=== PATIENT | female | born 1985 | race Caucasian/White ===

== ENCOUNTER 2021-09-18 12:54 | Outpatient (CLI) | payer OTHER, SELFPAY ==
[2021-09-18 13:17] LABS: Basophils Absolute Auto 0.1 K/mm3 (0.0-0.1); Basophils Percent Auto 0.5 % (0.2-1.2); Eosinophils Absolute Auto 0.2 K/mm3 (0-0.3); Hematocrit 36.3 % (37.0-47.0); Hemoglobin 10.8 g/dL (12.0-15.0); Immature Granulocyte Absolute 0.05 K/mm3 (0.00-0.031); Immature Granulocyte Percent A 0.5 % (0-0.5); Lymphocytes Absolute Auto 2.57 K/mm3 (0.9-3.2); Mean Corpuscular HGB Conc 29.8 g/dl (32-36); Mean Corpuscular Volume 74.1 fl (80-100); Mean Platelet Volume 9.9 fl (7.4-10.4); Monocytes Absolute Auto 0.8 K/mm3 (0.1-0.6); Monocytes Percent Auto 7.5 % (2.6-8.5); Neutrophils Percent Auto 65.5 % (45.5-73.1); Platelet Count Result 318 k/mm3 (150-375); Red Cell Distribution Width 17.5 % (11.5-14.5); White Blood Count 10.7 K/mm3 (4.5-10.0)
[2021-09-18 13:31] LABS: Cholesterol 189 mg/dL (0-200); HDL Direct 42 mg/dL; Triglycerides 222 mg/dL (<150)
[2021-09-18 13:41] LABS: LDL Cholesterol Direct 115 mg/dL
[2021-09-18 13:45] LABS: Beta HCG Quantitative < 2.39 mIU/ML
[2021-09-18 14:16] LABS: Hemoglobin A1C 6.1 % (<5.7)
[2021-09-18 14:48] LABS: Hypochromasia 1+ (NORMAL); Ovalocytes 1+ (NORMAL); Platelet Estimate Adequate (Adequate); Stomatocytes 1+ (NORMAL)
[2021-09-21 15:25] LABS: FSH 5.2 mIU/mL (***); Progesterone 0.7 ng/mL (***); Prolactin 10.3 ng/mL (***)
[2021-09-24 18:05] LABS: Testosterone Free 6.5 pg/mL (0.1-6.4); Testosterone Total 33 ng/dL (2-45)
[2021-09-24 22:56] LABS: Estradiol, Ultrasensitive 45 pg/mL
== END 2021-09-18 12:55 | disposition home or self-care (01) ==
LOC: ANHLAB 12:58
PROVIDERS: PCP Family Medicine; Visit Provider Obstetrics & Gynecology
DX: Z87.42 Personal history of other diseases of the female genital tract (principal)
CPT/HCPCS: 36415; 80061; 82670; 83001; 83036; 84144; 84146; 84402; 84403; 84702; 85025

== ENCOUNTER 2021-09-29 15:21 | Outpatient (CLI) | payer OTHER, SELFPAY ==
--- NOTE | ~2021-09-29 | US_ITS ---
EXAMINATION: US pelvic complete w TV DATE: 09/29/2021 16:03 INDICATION: Endometriosis, PCOS, irregular periods, infertility. TECHNIQUE: Multiple transabdominal and endovaginal sonographic images of the pelvis were obtained. COMPARISON: None. FINDINGS: Uterus: 9.2 x 4.9 x 4.0 cm. Endometrial complex measures 1.2 cm. Right Ovary: 2.9 x 2.4 x 2.8 cm. Vascular flow is present. Small peripheral cysts or follicles. Left Ovary: 2.8 x 2.5 x 2.4 cm. Vascular flow is present. Likely multiple small follicles. There is no free fluid in the pelvis. IMPRESSION: 1. Ovarian morphology could be consistent with polycystic ovarian syndrome in the appropriate clinica l context. 2. Otherwise normal pelvic sonogram findings. Reviewed, dictated and finalized at location K. IMPRESSION: 1. Ovarian morphology could be consistent with polycystic ovarian syndrome in t he appropriate clinical context. 2. Otherwise normal pelvic sonogram findings.
== END 2021-09-29 15:22 | disposition home or self-care (01) ==
PROVIDERS: PCP Family Medicine; Visit Provider Obstetrics & Gynecology
DX: Z87.42 Personal history of other diseases of the female genital tract (principal); N83.201 Unspecified ovarian cyst, right side
CPT/HCPCS: 76830; 76856

== ENCOUNTER 2021-11-02 00:26 | Day surgery (SDC) | payer OTHER, SELFPAY ==
[2021-10-27 12:21] VITALS: BMI 48.6
--- NOTE | 2021-10-27 12:30 | PC.NURSE ---
Report to the Outpatient Waiting Room, entrance under the green pavilion located off [facility], at time 0900_ on date _11/02/21___. OR Time: ___1100_. - You and your visitor will be asked a series of questions to screen for COVID 19 for your protection. - Only one visitor is allowed at this time. - The patient visitor is requested to leave or wait in car when not with patient. - A mask is required within the hospital. Patients may have clear liquids (water, carbonated beverages, clear teas, apple juice) until 3 hours prior to surgery with a maximum of 20 ounces. - No food from midnight until time of surgery - Infants may have breast milk until 4 hours before surgery, formula 6 hours prior to surgery. - Children will be allowed to drink immediately following surgery. If applicable, please bring a bottle or sippy cup to assist with drinking. Juice, water, soda, and popsicles are readily available. For infants on formula, please bring formula the day of surgery. Pacifiers are allowed. Take the following medications with a SIP of water the morning of surgery: NONE Medications to discontinue per physician NONE Date to take last dose Please no make-up, nail sami, hairspray, perfume, deodorant, or body powder the day of surgery. No jewelry (including any body piercings) or valuables the day of surgery, leave them at home. Please take a shower or bath the night before, or the morning of, surgery with an antibacterial soap. Wear comfortable, loose fitting clothing. Children are encouraged to wear pajamas. - Jewelry must be removed prior to entering the operating room. Rings and piercings that are not removed may be cut off. - The hospital will not accept responsibility for valuables. - Please leave all valuables, including medications, at home the day of surgery. If you are going home after surgery, a licensed refrigerated company driver must drive you home. - NO public transportation without another adult. - We recommend that an adult stay with you for 24 hours following discharge. - We also recommend that you do not drive, make important decision, drink alcoholic beverages, or take any drugs that were not prescribed by your health care provider for at least 24 hours after your discharge time. For Pediatric surgeries, we recommend two adults accompany the child home (only one inside the building at this time). Follow any additional instructions given to you from your surgeon. If you or anyone in your household have experienced Covid symptoms in the past week, please notify your surgeon or the nurse liaison at the phone number below for possible testing. Telephone instructions given to _PATIENT and asked if any additional questions and then verbalized understanding. Patient advised to call surgeon office or pre surgery nurse liaison [phone] if any additional questions.
--- NOTE | 2021-11-01 21:10 | PM.IMHP ---
H&P: HPI History of Present Illness Date/Time: 11/01/21 21:10 Chief Complaint: AUB Narrative: Chari is a 36yo P1011, LMP 08/31/21 who presented to clinic to discuss surgery. She has a long standing h/o irregular periods. She was seen for [employer] 05/2020 where blood work was ordered to rule out PCOS. She reports that she did not have a period from Apr 2021 until 08/31/21. She started spotting then began having really heavy bleeding with huge clots the size of her fist. She had been trying to conceive. She called here and blood work was ordered 09/2021 which showed PCOS, hcg neg. US showed PCOS ovaries and a thickened lining of 1.2cm but had already been bleeding for 5 weeks. She has been taking Provera 10mg daily and stopped it (and the bleeding) just 2 days ago. She is ready to undergo D&C. Still considering trying to get after Apr 2022. No symptoms of anemia. She has been taking iron. Review of Systems Review of Systems: All systems reviewed & are unremarkable except as noted in HPI and below PMFSH Past Medical History Medical History OCD (obsessive compulsive disorder) Surgical History Surgical History H/O colposcopy with cervical biopsy H/O LEEP History of cholecystectomy History of dilation and curettage xs 5 between endometriosis Family History Family History Other Cerebrovascular accident Diabetes mellitus Heart disease Tongue cancer Social History Social History Smoking packs per day: 0.5 Smoking cigarettes per day: 10.0 Years smoked: 10 Smoking pack-years: 5.00 Smoking status: Former smoker Additional smoking assessment comments: STOPPED 2014 Alcohol intake: never Substance use: never Living arrangements: with family Gender identity (if verbalized by the patient): Female Meds Home Medications and Allergies Home Medications Medication Instructions Recorded Confirmed Type buspirone 5 mg tablet 5 mg PO BID 10/15/21 10/27/21 History escitalopram oxalate 10 mg tablet 10 mg PO DAILY 10/15/21 10/27/21 History (Lexapro) ferrous sulfate 325 mg (65 mg 1 tablet PO DAILY 10/27/21 10/27/21 History iron) tablet (FeroSul) Allergies Allergy/AdvReac Type Severity Reaction Status Date / Time No Known Allergies Allergy Unverified 10/27/21 12:18 Exam Const: General: cooperative, comfortable and no acute distress Nutritional Appearance: obese morbidly obese Resp: Effort & Inspection: normal respiratory effort Cardio: Rate: regular rate GI: GI Palp: No abdominal tenderness and Yes Soft to palpation : Other: deferred to OR Skin: General skin exam: normal color Neuro: General: patient oriented x3 Psych: Appearance: grossly normal Affect: normal affect Attitude: cooperative Assessment and Plan Assessment and plan (1) Abnormal uterine bleeding (AUB): Code(s): N93.9 - Abnormal uterine and vaginal bleeding, unspecified Status: Acute (2) Endometrial thickening on ultrasound: Code(s): R93.89 - Abnormal findings on diagnostic imaging of other specified body structures Status: Acute (3) History of PCOS: Code(s): Z87.42 - Personal history of other diseases of the female genital tract Status: Acute Plan - Proceed with Hysteroscopy with D&C - Risks and benefits explained in detail - will then start OCPs for at least 6 months to normalize hormones while she works on weight loss
--- NOTE | 2021-11-02 07:03 | WPDHPUPDATE1 ---
History and Physical Update Update Date/Time: 11/02/21 07:03 History and Physical has been reviewed, including an updated exam of the patient. There are NO changes in the patient's condition. Risks, benefits, and alternatives have been discussed and questions answered. Patient agrees to proceed with procedure.
[2021-11-02] MEDS: ACETAMINOPHEN 500 MG TABLET 1000 MG PO (10:03)
--- NOTE | 2021-11-02 10:09 | WPDANESEPPF ---
Anes - Initial Pre Proc Eval Procedure: Operation Date: 11/02/21 11:00 Proposed Procedures p Hysteroscopy, Dilation and Curettage - Norma Melo MD Date/Time: 11/02/21 10:09 Surgeon: Norma Melo MD Pre Op Diagnosis: endometrial hyperplasia Patient Data Age: 36 Gender: F Height: 1.73 m Weight: 145 kg Allergies Allergy/AdvReac Type Severity Reaction Status Date / Time No Known Allergies Allergy Unverified 10/27/21 12:18 Home Medications Medication Instructions Recorded Confirmed Type buspirone 5 mg tablet 5 mg PO BID 10/15/21 10/27/21 History escitalopram oxalate 10 mg tablet 10 mg PO DAILY 10/15/21 10/27/21 History (Lexapro) ferrous sulfate 325 mg (65 mg 1 tablet PO DAILY 10/27/21 10/27/21 History iron) tablet (FeroSul) Patient hx anesthesia problems: none Family hx anesthesia problems: none Results Review: All pre-operative results and documents have been reviewed as part of the pre-operative evaluation. COUNTS INCLUDE 234 BEDS AT THE [facility] Past Medical History Medical History (Updated 11/02/21 @ 10:10 by Kameron Frank MD) Morbid obesity OCD (obsessive compulsive disorder) Surgical History Surgical History H/O colposcopy with cervical biopsy H/O LEEP History of cholecystectomy History of dilation and curettage xs 5 between endometriosis Family History Family History Other Cerebrovascular accident Diabetes mellitus Heart disease Tongue cancer Social History Social History Smoking packs per day: 0.5 Smoking cigarettes per day: 10.0 Years smoked: 10 Smoking pack-years: 5.00 Smoking status: Former smoker Additional smoking assessment comments: STOPPED 2014 Alcohol intake: never Substance use: never Living arrangements: with family Gender identity (if verbalized by the patient): Female Anes - Eval Final PreProcedure Day of Procedure 11/02/21 10:09 Patient weight: morbidly obese Heart: regular rate and rhythm Lungs: clear to auscultation Airway: Mallampati scale class II Neurological: alert and oriented ASA classification: III Emergent: no Anesthetic plan: proceed Anesthesia type and monitoring: general GIVS and standard monitoring Results Review: All pre-operative results and documents have been reviewed as part of the pre-operative evaluation. Informed Consent: The patient's anesthetic plan and its attendant risks and benefits were discussed with the patient/family/POA. Questions were solicited and answers provided to the satisfaction of the patient/family/POA.
[2021-11-02] MEDS: LACTATED RINGERS 1,000 ML 30 ML IV CONT ×2 (10:10→12:09)
[2021-11-02 10:18] VITALS: BP 147/98; PULSE 108; RESP 16; TEMP 35.9; O2SAT 97
--- NOTE | 2021-11-02 12:07 | P.OP_ITS ---
Procedure Note - Detailed Date of Procedure 11/02/21 Pre-op Diagnosis AUB Thickened endometrium H/o PCOS Post-op Diagnosis Same Procedure Performed Hysteroscopy with D&C Surgeon Norma Melo MD Anesthesia MAC (with LMA) Indications Chari is a 36yo P1011 who has a long standing h/o irregular periods. She was seen for [employer] 05/2020 where blood work was ordered to rule out PCOS. She reports that she did not have a period from Apr 2021 until 08/31/21. She started spotting then began having really heavy bleeding with huge clots the size of her fist. She had been trying to conceive. She called here and blood work was ordered 09/2021 which showed PCOS, hcg neg. US showed PCOS ovaries and a thickened lining of 1.2cm but had already been bleeding for 5 weeks. She has been taking Provera 10mg daily and stopped it (and the bleeding) October 13, 2021. Findings Uterus sounded 10cm, normal cervix, very long vagina. Uterus w/ profusely thickened endometrium and polypoid lining throughout. Bilateral tubal ostia visualized. Good hemostasis at end of case. Fluid deficit of 90cc at end of case. Description of Procedure Chari was taken to the operating room where she was placed under sedation. She was then prepped and draped in the usual sterile fashion in dorsal lithotomy position with her legs in low Aries stirrups. A time-out was performed and no perioperative antibiotics were indicated. A bivalve speculum was placed within the vagina where she began moving quite a bit and was noted to be coughing. Anesthesia decided to proceed with placing an LMA which was placed without complications. The cervix was identified and the anterior lip of cervix was grasped with a single-tooth tenaculum. This cervix was then serially dilated to allow for the hysteroscope. A diagnostic hysteroscope was placed within the uterus as the normal was too large to allow for entry into the uterus with the speculum in place. The hysteroscope was difficult due to the long vagina and anteverted uterus. The hysteroscope was advanced into the uterine cavity where the above findings were noted. The hysteroscope was removed and a curettage was performed with a significant amount of endometrial curettings noted. The hy steroscope was once again advanced into the uterine cavity where polypoid tissue was still noted. An additional curettage was performed with more tissue removed and a good uterine cry noted throughout. All instruments were then removed from the vagina. Sponge, lap, instrument, needle counts were correct at the end of procedure. The patient was awoken from anesthesia and taken to recovery in a s table condition with plans of same-day discharge home. She will be prescribed Provera 5mg to take until she is seen for her post-op appointment. Estimated Blood Loss 10 IV Fluids 1,100 Pathology Yes (endometrial curettings) Complications No immediate complications Condition Stable Disposition Same day [facility] Billing Surgery - Charge Forward: Surgery Billing
[2021-11-02 12:09] VITALS: BP 111/78; PULSE 102; RESP 26; TEMP 36.2; O2SAT 100
[2021-11-02 12:25] VITALS: BP 104/73; PULSE 94; RESP 25; O2SAT 97
[2021-11-02 12:40] VITALS: BP 106/69; PULSE 90; RESP 24; O2SAT 98
--- NOTE | 2021-11-02 12:50 | SUR.PHASEI ---
PT SLEEPING IN INTERVALS. STATES CRAMPING /10. SHE WOULD LIKE A DRINK AND A PAIN PILL. FLACC SCORE =0
[2021-11-02 13:00] VITALS: BP 135/68; PULSE 98; RESP 20
[2021-11-02] MEDS: oxyCODONE HCL (*CRX) 5 MG TAB IR PO (13:09)
[2021-11-02 13:30] VITALS: BP 114/87; PULSE 89; RESP 16
== END 2021-11-02 13:55 | disposition home or self-care (01) ==
PROVIDERS: PCP Family Medicine; Visit Provider Obstetrics & Gynecology
PROC: 0U5B8ZZ Destruction of Endometrium, Via Natural or Artificial Opening Endoscopic (ICD-10-PCS; CPT 58563; principal; 2021-11-02 11:00)
DX: N85.02 Endometrial intraepithelial neoplasia [EIN] (principal); E28.2 Polycystic ovarian syndrome; F42.8 Other obsessive-compulsive disorder; E66.01 Morbid (severe) obesity due to excess calories; Z68.43 Body mass index [BMI] 50.0-59.9, adult; Z87.891 Personal history of nicotine dependence
CPT/HCPCS: 58558; 88305; A9270; J2250; J2704; J3010; J7030; J7120